=== PATIENT | male | born 1965 | race Two or more races ===

== ENCOUNTER 2018-02-06 20:09 | Observation (INO) | payer SELFPAY ==
[~2018-02-06] VITALS: Ht 170.2 cm; Wt 61.0 kg
[2018-02-06 21:14] LABS: BASOPHILS # (AUTO) 0.04 x10^3/uL (0-0.1); BASOPHILS % (AUTO) 1 % (0-1); EOSINOPHILS % (AUTO) 4 % (1-7); LYMPHOCYTES # (AUTO) 1.87 x10^3/uL (1-3.4); LYMPHOCYTES % (AUTO) 23 % (22-44); MD NO; MEAN CORPUSCULAR HEMOGLOBIN 29.4 pg (27.5-34.5); MEAN CORPUSCULAR HGB CONC 34.4 g/dL (33.2-36.2); MEAN CORPUSCULAR VOLUME 85.6 fL (81-97); MEAN PLATELET VOLUME 7.9 fL (7.4-10.4); MONOCYTES # (AUTO) 0.58 x10^3/uL (0.2-0.8); MONOCYTES % (AUTO) 7 % (2-9); NEUTROPHILS # (AUTO) 5.25 x10^3/uL (1.8-6.8); NEUTROPHILS % (AUTO) 65 % (42-75); PLATELET COUNT 355 x10^3/uL (130-400); RED BLOOD COUNT 5.24 x10^6/uL (4.38-5.82); RED CELL DISTRIBUTION WIDTH 13.1 % (9.4-14.8)
[2018-02-06 21:16] LABS: ALBUMIN 3.9 g/dL (3.4-5.0); ANION GAP 6 mmol/L (5-15); CALCIUM 9.3 mg/dL (8.5-10.1); CHLORIDE 105 mmol/L (98-107)
[2018-02-06 21:21] LABS: CREATININE 0.95 mg/dL (0.7-1.3)
[2018-02-06 21:29] LABS: TROPONIN I 0.145 ng/mL (0.000-0.045)
[2018-02-06] MEDS ORDERED: ASPIRIN 81 MG TABLET CHEW ONE (21:39)
[2018-02-06 21:46] LABS: ALBUMIN 3.9 g/dL (3.4-5.0); BILIRUBIN, DIRECT 0.1 mg/dL (0.1-0.2)
[2018-02-06 21:48] LABS: BILIRUBIN,INDIRECT 0.2 mg/dL (0.0-2.0); BILIRUBIN,TOTAL 0.3 mg/dL (0.2-1.0); TOTAL PROTEIN 7.5 g/dL (6.4-8.2)
[2018-02-06] MEDS ORDERED: ONDANSETRON 2MG/ML, 2ML IVPush PRN ×2 (22:00→22:30)
[2018-02-06] MEDS ORDERED: ASPIRIN 81 MG TABLET CHEW PO ONE (22:00)
[2018-02-06] MEDS ORDERED: MORPHINE SULFATE 4 MG/ML, 1ML IVPush PRN (22:00)
[2018-02-06] MEDS ORDERED: NITROGLYCERIN 0.4 MG BOTTLE (25 TABS) SL PRN (22:30)
[2018-02-06] MEDS ORDERED: POLYETHYLENE GLYCOL 17 GM PACKET PO PRN (22:30)
[2018-02-06] MEDS ORDERED: ZOLPIDEM 5MG TABLET PO PRN (22:30)
[2018-02-06] MEDS ORDERED: hydrALAzine 20 MG/ML, 1ML IVPush PRN (22:30)
[2018-02-06 23:36] VITALS: BP 128/70
[2018-02-06] MEDS: METOPROLOL TARTRATE 25 MG TABLET PO SCH (23:57)
[2018-02-06] MEDS: SODIUM CHLORIDE 0.9% 1,000 ML IV SCH (23:58)
[2018-02-07 04:00] VITALS: BP 100/61
[2018-02-07 04:02] LABS: CHOL/HDL RATIO 2.7; CHOLESTEROL, TOTAL 126 mg/dL (140-239); HDL CHOL % 37 % (26-37); HDL CHOLESTEROL (DIRECT) 47 mg/dL (40-60); LDL CHOLESTEROL,CALCULATED 57 mg/dL (54-169); LDL/HDL RATIO 1.2 (0.5-3.0); TRIGLYCERIDES 110 mg/dL (50-200); VLDL CHOLESTEROL 22 mg/dL (0-25)
[2018-02-07 04:03] LABS: TROPONIN I 0.138 ng/mL (0.000-0.045)
[2018-02-07] MEDS: METOPROLOL TARTRATE 25 MG TABLET PO SCH (08:34)
[2018-02-07] MEDS: SODIUM CHLORIDE 0.9% 1,000 ML IV SCH (08:34)
[2018-02-07 08:35] VITALS: BP 110/71
[2018-02-07] MEDS ORDERED: REGADENOSON 0.4 MG/5 ML SYRINGE ONE (09:00)
[2018-02-07 10:55] VITALS: BP 110/71
== END 2018-02-07 15:13 | disposition home or self-care (01) ==
LOC: EDBD 20:09 → SUATTDRO 21:58 → ED 22:05 → EDIP 22:24 → 5SO 23:21
PROVIDERS: ADMIT Hospitalist; ATTEND Hospitalist
DX: R94.31 Abnormal electrocardiogram [ECG] [EKG] (principal); R74.8 Abnormal levels of other serum enzymes
CPT/HCPCS: 36415; 71045; 78452; 80048; 80061; 80076; 82040; 83690; 84484; 85025; 93005; 93017; 99285; A9502; C9898; G0378; J2785; J7030